=== PATIENT | male | born 1945 | race Caucasian/White ===

== ENCOUNTER → 2023-10-09 06:03 | Outpatient (REF) | payer OTHER, SELFPAY ==
[2023-10-09 10:04] LABS: % Basophils 0.4 % (0-2); % Eosinophils 1.1 % (0-6); % Immature Granulocytes 0.2 % (0-0.5); % Lymphocytes 22.1 % (20.5-51.1); % Monocytes 11.8 % (1.7-9.3); % Neutrophils 64.4 % (42.2-75.2); Absolute Eosinophils 0.1 10^3/uL (0-0.7); Absolute Monocytes 0.5 10^3/uL (0.1-0.6); Hematocrit 38.6 % (39.0-52.0); Hemoglobin 12.4 g/dL (13.0-18.0); Mean Corp Hgb Conc. 32.1 g/dL (33.0-37.0); Mean Corpuscular Hgb 29.5 pg (27.0-31.0); Mean Corpuscular Volume 91.9 fL (80.0-94.0); Nucleated Red Blood Cells % 0 % (-); Platelet Count 274 10^3/uL (130-400); Red Cell Dist. Width 15.4 % (11.5-14.5); White Blood Cell Count 4.6 10^3/uL (4.8-10.8)
[2023-10-09 12:53] LABS: Erythrocyte Sed Rate 14 mm/hour (0-20)
== END ==
LOC: HWLAB 06:03
PROVIDERS: ATTENDING PHYSICIAN Orthopaedic Surgery; FAMILY PHYSICIAN Internal Medicine
DX: T84.84XA Pain due to internal orthopedic prosthetic devices, implants and grafts, initial encounter (principal)
CPT/HCPCS: 36415; 85025; 85652; 86140

== ENCOUNTER → 2023-10-28 14:38 | Outpatient (REF) | payer OTHER, SELFPAY | LOC: HWRAD 14:38 | PROVIDERS: ATTENDING PHYSICIAN Urology; FAMILY PHYSICIAN Internal Medicine | DX: N20.0 Calculus of kidney (principal); N28.1 Cyst of kidney, acquired | CPT/HCPCS: 74178; Q9967 ==

== ENCOUNTER → 2024-01-29 06:35 | Outpatient (REF) | payer OTHER, SELFPAY ==
[2024-01-29 10:00] LABS: % Basophils 0.7 % (0-2); % Eosinophils 1.5 % (0-6); % Immature Granulocytes 0.4 % (0-0.5); % Lymphocytes 24.2 % (20.5-51.1); % Monocytes 10.7 % (1.7-9.3); % Neutrophils 62.5 % (42.2-75.2); Absolute Eosinophils 0.1 10^3/uL (0-0.7); Absolute Lymphocytes 1.1 10^3/uL (1.2-3.4); Absolute Monocytes 0.5 10^3/uL (0.1-0.6); Absolute Neutrophils 2.9 10^3/uL (1.4-6.5); Mean Corp Hgb Conc. 33.3 g/dL (33.0-37.0); Mean Corpuscular Hgb 31.1 pg (27.0-31.0); Mean Corpuscular Volume 93.3 fL (80.0-94.0); Mean Platelet Volume 9.9 fL (7.4-10.4); Nucleated Red Blood Cells % 0 % (-); Platelet Count 262 10^3/uL (130-400); Red Blood Cell Count 4.18 10^6/uL (4.70-6.10); Red Cell Dist. Width 14.9 % (11.5-14.5); White Blood Cell Count 4.6 10^3/uL (4.8-10.8)
[2024-01-29 10:30] LABS: ALT (SGPT) 18 U/L (0-50); AST (SGOT) 21 U/L (17-59); Albumin 3.8 g/dl (3.5-5.0); Alkaline Phosphatase 70 U/L (38-126); Blood Urea Nitrogen 19 mg/dl (9-20); Calcium 8.7 mg/dl (8.4-10.2); Carbon Dioxide 31 mmol/L (22-30); Chloride 104 mmol/L (98-107); Glucose 104 mg/dl (70-99); Potassium 4.8 mmol/L (3.5-5.1); Sodium 139 mmol/L (135-145); Total Bilirubin 0.4 mg/dl (0.2-1.3); Total Protein 6.3 g/dl (6.3-8.2); Uric Acid 6.1 mg/dl (3.5-8.5); eGFR > 60.00
== END ==
LOC: HWLAB 06:35
PROVIDERS: ATTENDING PHYSICIAN Physician Assistant; FAMILY PHYSICIAN Internal Medicine
DX: M10.9 Gout, unspecified (principal); M25.539 Pain in unspecified wrist; M25.579 Pain in unspecified ankle and joints of unspecified foot; M79.643 Pain in unspecified hand; M79.673 Pain in unspecified foot; Z51.81 Encounter for therapeutic drug level monitoring
CPT/HCPCS: 36415; 73100; 73130; 73600; 73630; 80053; 84550; 85025

== ENCOUNTER → 2024-02-23 06:06 | Outpatient (REF) | payer OTHER, SELFPAY ==
[2024-02-23 10:17] LABS: % Basophils 0.4 % (0-2); % Eosinophils 1.4 % (0-6); % Immature Granulocytes 0.2 % (0-0.5); % Lymphocytes 19.4 % (20.5-51.1); % Monocytes 9.5 % (1.7-9.3); % Neutrophils 69.1 % (42.2-75.2); Absolute Eosinophils 0.1 10^3/uL (0-0.7); Absolute Monocytes 0.5 10^3/uL (0.1-0.6); Absolute Neutrophils 3.4 10^3/uL (1.4-6.5); Hematocrit 39.6 % (39.0-52.0); Hemoglobin 13.4 g/dL (13.0-18.0); Mean Corp Hgb Conc. 33.8 g/dL (33.0-37.0); Mean Corpuscular Hgb 31.5 pg (27.0-31.0); Mean Platelet Volume 10.3 fL (7.4-10.4); Nucleated Red Blood Cells % 0 % (-); Platelet Count 238 10^3/uL (130-400); Red Blood Cell Count 4.26 10^6/uL (4.70-6.10); Red Cell Dist. Width 14.5 % (11.5-14.5); White Blood Cell Count 4.9 10^3/uL (4.8-10.8)
[2024-02-23 10:42] LABS: ALT (SGPT) 20 U/L (0-50); AST (SGOT) 21 U/L (17-59); Albumin 3.7 g/dl (3.5-5.0); Alkaline Phosphatase 71 U/L (38-126); Blood Urea Nitrogen 19 mg/dl (9-20); Calcium 8.7 mg/dl (8.4-10.2); Carbon Dioxide 30 mmol/L (22-30); Chloride 100 mmol/L (98-107); Glucose 112 mg/dl (70-99); HDL Cholesterol 75 mg/dl; LDL Cholesterol, Calculated 97 mg/dl; Potassium 3.9 mmol/L (3.5-5.1); Sodium 137 mmol/L (135-145); Total Bilirubin 0.5 mg/dl (0.2-1.3); Total Cholesterol 188 mg/dl (50-199); Total Protein 6.3 g/dl (6.3-8.2); Triglyceride 84 mg/dl (10-149); Very Low Density Lipoprotein 16 mg/dl (0-30); eGFR > 60.00
[2024-02-23 11:08] LABS: TSH 2.92 uIU/ml (0.47-4.68)
== END ==
LOC: HWLAB 06:06
PROVIDERS: ATTENDING PHYSICIAN Internal Medicine
DX: I10 Essential (primary) hypertension (principal)
CPT/HCPCS: 36415; 80053; 80061; 84443; 85025

== ENCOUNTER → 2024-08-19 06:25 | Outpatient (REF) | payer OTHER, SELFPAY ==
[2024-08-19 10:16] LABS: Blood Urea Nitrogen 16 mg/dl (9-20); Calcium 8.5 mg/dl (8.4-10.2); Carbon Dioxide 32 mmol/L (22-30); Chloride 100 mmol/L (98-107); Glucose 109 mg/dl (70-99); Potassium 4.3 mmol/L (3.5-5.1); Sodium 138 mmol/L (135-145); eGFR > 60.00
== END ==
LOC: HWLAB 06:25
PROVIDERS: ATTENDING PHYSICIAN Internal Medicine
DX: Z13.31 Encounter for screening for depression (principal); I10 Essential (primary) hypertension
CPT/HCPCS: 36415; 80048

== ENCOUNTER → 2024-11-02 12:32 | Outpatient (REF) | payer OTHER, SELFPAY | LOC: RAD 12:32 | PROVIDERS: ATTENDING PHYSICIAN Urology; FAMILY PHYSICIAN Internal Medicine | DX: N20.0 Calculus of kidney (principal); N28.1 Cyst of kidney, acquired | CPT/HCPCS: 74178; Q9967 ==

== ENCOUNTER → 2024-11-08 06:21 | Outpatient (REF) | payer OTHER, SELFPAY ==
[2024-11-08 09:54] LABS: % Basophils 0.7 % (0-2); % Eosinophils 1.4 % (0-6); % Immature Granulocytes 0.2 % (0-0.5); % Lymphocytes 23.9 % (20.5-51.1); % Monocytes 9.4 % (1.7-9.3); % Neutrophils 64.4 % (42.2-75.2); Absolute Eosinophils 0.1 10^3/uL (0-0.7); Absolute Monocytes 0.4 10^3/uL (0.1-0.6); Absolute Neutrophils 2.8 10^3/uL (1.4-6.5); Hematocrit 42.4 % (39.0-52.0); Hemoglobin 13.9 g/dL (13.0-18.0); Mean Corp Hgb Conc. 32.8 g/dL (33.0-37.0); Mean Corpuscular Volume 97.5 fL (80.0-94.0); Mean Platelet Volume 9.6 fL (7.4-10.4); Nucleated Red Blood Cells % 0 % (-); Platelet Count 240 10^3/uL (130-400); Red Blood Cell Count 4.35 10^6/uL (4.70-6.10); Red Cell Dist. Width 12.5 % (11.5-14.5); White Blood Cell Count 4.3 10^3/uL (4.8-10.8)
[2024-11-08 09:58] LABS: Blood Urea Nitrogen 24 mg/dl (9-20); Calcium 9.1 mg/dl (8.4-10.2); Carbon Dioxide 33 mmol/L (22-30); Chloride 99 mmol/L (98-107); Glucose 106 mg/dl (70-99); Potassium 4.4 mmol/L (3.5-5.1); Sodium 138 mmol/L (135-145); eGFR > 60.00
[2024-11-08 11:13] LABS: NT-proBNP 37.4 pg/ml
== END ==
LOC: HWLAB 06:21
DX: R06.09 Other forms of dyspnea (principal); R42 Dizziness and giddiness
CPT/HCPCS: 36415; 71046; 80048; 83880; 85025

== ENCOUNTER 2024-11-09 16:18 | Emergency (ER) | payer OTHER, SELFPAY ==
[2024-11-09 16:20] VITALS: BP 141/76
--- NOTE | 2024-11-09 16:46 | ED.GENMED ---
History of Present Illness
General
Chief Complaint: Chest Pain
Source: patient
Time Seen by Provider: 11/09/24 16:32
History of Present Illness
History of Present Illness:
79-year-old male presents the emergency room complaining of chest pain, mildly dizzy. Symptoms have been intermittent since Thursday. He was sent to the emergency by his primary care doctor for further evaluation. Patient does have a history of a
hiatal hernia and suspects his symptoms are from that. He denies any associated nausea, diaphoresis or shortness of breath. He is not having any discomfort at the time of my evaluation. Patient denies any previous cardiac history. Patient was
evaluated by Dr. Mendze for his hiatal hernia.
Past History
Past History
ED Past Medical History: HTN, Hypercholesterolemia, Other (Gout, glaucoma) and Other (Kidney stones)
ED Past Surgical History: Orthopedic (Bilateral knee replacements, left hip replacement at [facility] February 2022) and Tonsilectomy
Social History
Tobacco: Non-smoker
Alcohol: Daily
Drug: None
Personal:
Living: with family
Employment: Retired
Family History
Family History: Other (Noncontributory)
Phy Exam
Physical Exam
Physical Exam:
General: Awake, Alert, Oriented X3. No acute distress, appears stated age. High BMI.
Vitals: unremarkable
Head: Atraumatic
Eyes: Pupils equal, EOMI
Throat: Airway intact, no exudates
Neck: Trachea midline
Lungs: Clear and equal b/l
Heart: Regular rate, no murmurs
Abd: Soft, protuberant, nontender, No pulsatile mass
Neuro: Nonfocal
Skin: Warm, dry, no rash
Extremities: pulses equal b/l, no edema
Scores
Heart Score for Chest Pain Patients
STEMI patient?: No
History: Slightly or Non-Suspicious
ECG: Nonspecific Repolarization
Age: >/= 65 years
Risk Factors: 1 or 2 Risk Factors
Troponin: </= Normal Limit
Heart Score for Chest Pain Patients: 4
Heart Score Risk: 20.3% MACE over next 6 weeks
Course
Orders/Labs/Results
Orders:
Orders
11/09/24 16:18
Electrocardiogram (*1) Urgent
Reason for Study: Chest Pain
EKG- Treatment ONCE
11/09/24 16:59
Troponin I Urgent
Vital Signs
Initial and Last Documented VS:
Initial Vital Signs
Temp Pulse Resp BP Pulse Ox
98.5 F 82 16 141/76 97
11/09/24 16:20 11/09/24 16:20 11/09/24 16:20 11/09/24 16:20 11/09/24 16:20
Last Documented Vital Signs
Temp Pulse Resp BP Pulse Ox
98.5 F 69 18 139/86 97
11/09/24 16:20 11/09/24 18:30 11/09/24 18:30 11/09/24 18:00 11/09/24 18:35
MDM/Problems Addressed
Differential Diagnosis Includes:
acs, nstemi, discomfort from hiatal hernia
MDM/Problems Addressed:
Patient has a normal troponin. He had blood work yesterday which was reassuring. Pain has been intermittent throughout the day so 1 troponin is reassuring. Patient placed on the chest pain hotline. Also recommend follow-up with general surgery
for further evaluation of his hiatal hernia particularly if he is cleared by cardiology.
*Radiology
Radiology exam reviewed: preliminary read by ED provider (No acute abnormality by my review)
*Pulse Oximetry
Patient hypoxic: no
*EKG
Interpreted by ED Provider?: Yes
Heart Rate: 77
Rate: normal
Rhythm: sinus
[place]: normal axis
Interval: first degree heart block
QRS Pattern: normal QRS
Ischemia: non-specific ST changes
*[facility] Interpretation
Rate: normal
Interpretation: normal
Heart Rate: 77
Rhythm: sinus
*Critical Care Note
Total Time (30-74mins, 75-104mins- exclusive of procedures): Not Applicable
ED Attending Note
-
Portions of this chart may have been created with voice recognition software.� Occasional wrong word or��sound alike� substitutions may have occurred due to the inherent limitations of voice recognition software.
Discharge Plan
Departure
Patient Disposition: Home (Routine Discharge)
Date of Disposition: 11/09/24
Time of Disposition: 18:35
Patient with high blood pressure during this ER visit?: Yes
Condition: Good
Discharge Problem:
Chest pain, Hiatal hernia
Instructions: Chest Pain DCA Follow Up, BLOOD PRESSURE
Prescriptions:
No Action
enalapril maleate 5 mg Tablet
5 mg PO DAILY
atorvastatin 10 mg Tablet
10 mg PO QPM
probenecid 500 mg Tablet
500 mg PO BID
turmeric 400 mg Capsule
400 mg PO DAILY
tamsulosin [Flomax] 0.4 mg Capsule
0.4 mg PO HS Qty: 20 0RF
polyethylene glycol 3350 [Miralax] 17 gram Powder In Packet
17 g PO DAILY
meloxicam 15 mg tablet
15 mg PO DAILY
bisacodyl [Dulcolax (bisacodyl)] 5 mg Tablet,Delayed Release (Dr/Ec)
10 mg PO BIDPRN PRN (Reason: when on vicodin)
Cholest Off 450 mg Tablet
900 mg PO BID
hydrocodone-acetaminophen 5-300 mg tablet
1 tab PO QIDPRN PRN (Reason: severe pain)
Referrals:
Vince Li MD [Active] -
Zulma Richter MD [Active] -
Franki Sanchez MD [Family Provider] -
Activity Restrictions/Additional Instructions:
Your EKG and heart test here are good. Chest x-ray from yesterday confirms the presence of a large hiatal hernia but there is no other abnormalities noted on your chest x-ray. Your blood work from yesterday showed a mildly elevated glucose level
and suggestion that you may have been a bit dehydrated at the time. You should follow-up with cardiology. I have placed you on our 'chest pain hotline' and you should receive a call from [facility] tomorrow to schedule an
appointment. I have provided you with their contact information if you do not hear from them. You should also follow-up with surgery for further evaluation of her hiatal hernia.
Interventions
Interventions:
*Risk Screen - Suicide Last Done: 11/09/24 17:24
*General Assessment Last Done: 11/09/24 17:25
*Neglect/Abuse Screening Last Done: 11/09/24 17:24
*ED- Fall Risk Assessment Last Done: 11/09/24 17:24
*Nursing Disposition Last Done: 11/09/24 18:41
ED- Cardiac Assessment Last Done: 11/09/24 17:24
Discharge Date and Time
Discharge Date/Time: 11/09/24 18:41
Print Language: SERBIAN
[2024-11-09 17:00] VITALS: BP 136/77
[2024-11-09 18:00] VITALS: BP 139/86
[2024-11-09 18:02] LABS: Troponin I < 0.012 ng/ml
== END 2024-11-09 18:41 | disposition home or self-care (01) ==
LOC: EMR 16:18
PROVIDERS: EMERGENCY PHYSICIAN Emergency Medicine; FAMILY PHYSICIAN Internal Medicine
DX: R07.9 Chest pain, unspecified (principal); K44.9 Diaphragmatic hernia without obstruction or gangrene; I44.0 Atrioventricular block, first degree; I10 Essential (primary) hypertension; E78.00 Pure hypercholesterolemia, unspecified
CPT/HCPCS: 99284; 84484; 93005

== ENCOUNTER → 2024-11-28 10:50 | Outpatient (REF) | payer OTHER, SELFPAY | LOC: HWRCS 10:50 | PROVIDERS: ATTENDING PHYSICIAN Nuclear Medicine Nuclear Cardiology; FAMILY PHYSICIAN Internal Medicine | DX: R06.02 Shortness of breath (principal); R55 Syncope and collapse; R42 Dizziness and giddiness; I49.3 Ventricular premature depolarization; R01.1 Cardiac murmur, unspecified | CPT/HCPCS: 93306 ==

== ENCOUNTER → 2025-01-03 06:26 | Outpatient (REF) | payer OTHER, SELFPAY ==
[2025-01-03 09:22] LABS: HDL Cholesterol 71 mg/dl; LDL Cholesterol, Calculated 91 mg/dl; Total Cholesterol 189 mg/dl (50-199); Triglyceride 135 mg/dl (10-149); Very Low Density Lipoprotein 27 mg/dl (0-30)
== END ==
LOC: HWLAB 06:26
PROVIDERS: ATTENDING PHYSICIAN Internal Medicine
DX: E78.5 Hyperlipidemia, unspecified (principal)
CPT/HCPCS: 36415; 80061

== ENCOUNTER → 2025-02-03 15:50 | Outpatient (REF) | payer OTHER, SELFPAY | LOC: DHSLP 15:50 | PROVIDERS: ATTENDING PHYSICIAN Internal Medicine; FAMILY PHYSICIAN Internal Medicine | DX: G47.33 Obstructive sleep apnea (adult) (pediatric) (principal) | CPT/HCPCS: 95800 ==

== ENCOUNTER 2025-03-22 06:35 | Day surgery (SDC) | payer OTHER, SELFPAY ==
[2025-03-13 09:12] LABS: Hematocrit 39.4 % (39.0-52.0); Hemoglobin 13.0 g/dL (13.0-18.0); Mean Corp Hgb Conc. 33.0 g/dL (33.0-37.0); Mean Corpuscular Volume 97.8 fL (80.0-94.0); Platelet Count 215 10^3/uL (130-400); Red Cell Dist. Width 12.6 % (11.5-14.5)
[2025-03-13 09:59] LABS: Blood Urea Nitrogen 22 mg/dl (9-20); Calcium 8.7 mg/dl (8.4-10.2); Carbon Dioxide 30 mmol/L (22-30); Chloride 104 mmol/L (98-107); Glucose 100 mg/dl (70-99); Potassium 4.7 mmol/L (3.5-5.1); Sodium 138 mmol/L (135-145); eGFR > 60.00
[2025-03-13 13:54] VITALS: BMI 36.4
[2025-03-22] VITALS (12 sets, daily range): BP systolic 115–152; BP diastolic 63–87; BMI 36.4
[2025-03-22] MEDS: TYLENOL 1000 MG PO (09:16)
[2025-03-22] MEDS: NORMOSOL-R/PLASMALYTE-A 1000 IV ×2 (09:17→17:11)
--- NOTE | 2025-03-22 15:20 | W.IMMPOSTOP ---
Surgical Immed Post Op Note
-
Primary Surgeon: Guillermo
Assisting Surgeon: ARLEEN Horvath
Pre-op Diagnosis: Paraesophageal hernia
Post-op Diagnosis: Paraesophageal hernia
Procedure Performed: Laparoscopic paraesophageal hernia repair with fundoplication
Anesthesia Type: General
Specimen / Cultures: None
Estimated Blood Loss: 11 cc
Complications: None
Operative Findings:
1. 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
2. Complete reduction with > 3 cm esophageal mobilization
3. Bl vagi identified, no pleural violation
4. Posterior crural closure with 0 silk x6
5. Gastropexy along greater curve with 0 silk
[2025-03-22] MEDS: OFIRMEV 100 IV ×2 (16:27→21:08)
[2025-03-22] MEDS: NON-FORMULARY ITEM 1 DROP OPHTH ×2 (18:31→21:06)
[2025-03-22] MEDS: PRED FORTE 1% EYE DROPS 1 DROP OPHTH ×2 (18:31→21:07)
--- NOTE | 2025-03-22 19:22 | PTCARENOTE ---
Pt arrived to [facility] from PACU in a bed. Pt on 2L at 96% lungs diminished. 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 Crepitus felt on shoulders. Knee high SCDs on pt. Admission questions answered. Bed locked and in lowest
position. Care ongoing.
--- NOTE | 2025-03-22 19:24 | PTCARENOTE ---
Addendum entered by Elinor Hinson RN 03/22/25 19:25:
Sinus denzel on monitor. Care ongoing.
Original Note:
Pt placed on telemetry per Dr. Li.
[2025-03-23 03:15] VITALS: BP 129/73
[2025-03-23] MEDS: OFIRMEV 100 IV ×2 (03:39→10:40)
[2025-03-23] MEDS: NORMOSOL-R/PLASMALYTE-A 1000 IV (04:25)
[2025-03-23 06:06] LABS: Hematocrit 35.3 % (39.0-52.0); Hemoglobin 11.8 g/dL (13.0-18.0); Mean Corp Hgb Conc. 33.4 g/dL (33.0-37.0); Mean Corpuscular Volume 97.2 fL (80.0-94.0); Platelet Count 219 10^3/uL (130-400); Red Cell Dist. Width 13.0 % (11.5-14.5)
[2025-03-23 06:31] LABS: Blood Urea Nitrogen 20 mg/dl (9-20); Calcium 8.1 mg/dl (8.4-10.2); Carbon Dioxide 28 mmol/L (22-30); Chloride 103 mmol/L (98-107); Estimated Creatinine Clearance 74 ml/min; Glucose 106 mg/dl (70-99); Potassium 4.2 mmol/L (3.5-5.1); Sodium 135 mmol/L (135-145); eGFR > 60.00
[2025-03-23 07:25] VITALS: BP 115/68
--- NOTE | 2025-03-23 08:30 | W.PN.GS2 ---
Today's Communication / Plan
-
-- Clears ADAT to fulls, possible soft food this afternoon/evening
-- IVF until tolerating diet
-- Pain control: IV Tylenol, Toradol, Dilaudid
-- Home meds reviewed and ordered as needed, plan to start home BB and will hold on other BP meds
-- Dispo pending
Assessment / Plan
-
Patient is a 79 yo M POD#1 s/p laparoscopic PEH repair with gastropexy
AVSS
Labs unremarkable
Recovering well. No postoperative concerns. Plan for dietary advancement throughout the day.
-- Clears ADAT to fulls, possible soft food this afternoon/evening
-- IVF until tolerating diet
-- Pain control: IV Tylenol, Toradol, Dilaudid
-- Home meds reviewed and ordered as needed, plan to start home BB and will hold on other BP meds
-- DVT: Lovenox
-- GI: PPI
-- Dispo pending
Subjective Data
-
Date of Service: March 23, 2025
No major complaints. Reports some chest soreness. Pain overall well-controlled. No nausea, vomiting, or regurgitation. No issues with reflux. No fevers. No ambulation postop. Voiding.
Objective Data
-
Intake and Output
03/22/25 03/23/25 03/24/25
06:59 06:59 06:59
Intake Total 1700 / 1700
Output Total 700 / 700
Balance 1000 / 1000
Intake:
IV fluids (Total) 1450 / 1450
Normosal 200 / 200
IV piggybacks 250 / 250
Output:
Urine, Voided 700 / 700
Vital Signs
Temp Pulse Resp BP Pulse Ox
98.5 F 60 16 115/68 95
03/23/25 07:25 03/23/25 07:25 03/23/25 07:25 03/23/25 07:25 03/23/25 07:25
Lab Results
03/23/25 05:21
03/23/25 05:21
Calcium 8.1 mg/dl (8.4-10.2) L 03/23/25 05:21
Physical Exam
-
Gen: NAD
Abd: soft, obese, mild tenderness, ND, non-peritoneal, incisions c/d/i - no erythema, ecchymosis or drainage
Patient has a baer catheter: No
Patient has a central line: No
[2025-03-23] MEDS: NSS (PRESERVATIVE FREE) 10 ML IV (08:51)
[2025-03-23] MEDS: PROTONIX IV 40 MG IV (08:51)
[2025-03-23] MEDS: TOPROL XL 12.5 MG PO (08:51)
[2025-03-23] MEDS: NON-FORMULARY ITEM 1 UNIT OPHTH (08:52)
[2025-03-23] MEDS: NON-FORMULARY ITEM 1 DROP OPHTH ×4 (08:52→21:10)
[2025-03-23] MEDS: NON-FORMULARY ITEM 1 UNIT RIGHT EYE (08:53)
[2025-03-23] MEDS: PRED FORTE 1% EYE DROPS 1 DROP OPHTH ×5 (08:53→21:10)
--- NOTE | 2025-03-23 10:05 | CM ---
Reviewed the chart notes and spoke with the patient at the bedside. Patient is s/p laparoscopic PEH repair with gastropexy. The patient resides with spouse in a one story home with one step to enter. The patient has a cane, CPAP machine and grab
bar in shower. The patient has had [facility] in past, but no SNF. The patient confirmed his pharmacy of choice is [facility]. CM continues to be available to patient/family and is monitoring medical plan for needs at discharge.
Plan: Discharge to home when medically stable. No anticipated needs identified at this time.
[2025-03-23 11:20] VITALS: BP 114/64
[2025-03-23] MEDS: NORMOSOL-R/PLASMALYTE-A IV (13:01)
[2025-03-23 15:38] VITALS: BP 120/64
[2025-03-23] MEDS: LOVENOX 40 MG SC (17:33)
[2025-03-23 19:41] VITALS: BP 124/62
[2025-03-23] MEDS: TORADOL 15 MG IV (21:58)
[2025-03-23 23:10] VITALS: BP 105/58
[2025-03-24 03:15] VITALS: BP 131/71
[2025-03-24 07:30] VITALS: BP 117/64
[2025-03-24] MEDS: PROTONIX IV 40 MG IV (07:44)
[2025-03-24] MEDS: NON-FORMULARY ITEM 1 UNIT OPHTH (07:44)
[2025-03-24] MEDS: LIPITOR 10 MG PO (07:44)
[2025-03-24] MEDS: NSS (PRESERVATIVE FREE) 10 ML IV (07:44)
[2025-03-24] MEDS: NON-FORMULARY ITEM 1 DROP OPHTH (07:45)
[2025-03-24] MEDS: NON-FORMULARY ITEM 1 UNIT RIGHT EYE (07:45)
[2025-03-24] MEDS: PRED FORTE 1% EYE DROPS 1 DROP OPHTH ×2 (07:45→07:46)
[2025-03-24] MEDS: TOPROL XL 12.5 MG PO (07:46)
[2025-03-24] MEDS: TORADOL 15 MG IV (08:01)
--- NOTE | 2025-03-24 08:54 | CM ---
Cm reviewed medical records. Patient remains acutely ill. CM will continue to follow for needs.
PLAN: Home no needs anticipated.
--- NOTE | 2025-03-24 09:11 | W.PN.GS2 ---
Today's Communication / Plan
-
-- DC today
Assessment / Plan
-
Patient is a 79 yo M POD#2 s/p laparoscopic PEH repair with gastropexy
AVSS
Labs unremarkable
Recovering well. No postoperative concerns. DC today
-- Soft diet, education provided
-- HLIV
-- Pain control: IV Tylenol, Toradol, Tramadol
-- Home meds reviewed and ordered as needed, restart meds on DC
-- DVT: Lovenox
-- GI: PPI
-- DC today
Subjective Data
-
Date of Service: March 24, 2025
No complaints. No issues with nausea or emesis, no dysphagia or regurgitation. No fevers. Pain well controlled.
Objective Data
-
Intake and Output
03/23/25 03/24/25 03/25/25
06:59 06:59 06:59
Intake Total 1700 / 1700 960 / 960
Output Total 700 / 700 725 / 725
Balance 1000 / 1000 235 / 235
Intake:
Oral fluids 960 / 960
IV fluids (Total) 1450 / 1450
Normosal 200 / 200
IV piggybacks 250 / 250
Output:
Urine, Voided 700 / 700 725 / 725
Other:
Number of approximated MODERATE 1
amounts of urine
Number of approximated LARGE 2
amounts of urine
Vital Signs
Temp Pulse Resp BP Pulse Ox
98.0 F 64 16 117/64 95
03/24/25 07:30 03/24/25 07:46 03/24/25 07:30 03/24/25 07:46 03/24/25 07:30
Lab Results
03/23/25 05:21
03/23/25 05:21
Calcium 8.1 mg/dl (8.4-10.2) L 03/23/25 05:21
Physical Exam
-
Gen: NAD
Abd: soft, obese, mild tenderness, ND, non-peritoneal, incisions c/d/i - no erythema, ecchymosis or drainage
Patient has a baer catheter: No
Patient has a central line: No
--- NOTE | 2025-03-24 09:41 | CM ---
CM reviewed medical records. Patient is medically ready for discharge. No needs noted.
PLAN: Home no needs.
--- NOTE | 2025-03-24 09:48 | W.DS.TRANS ---
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
-
Discharge Instructions:
Discharge Diagnosis/Procedures Laparoscopic paraesophageal hernia repair
Diet Other diet
Additional Diets Follow a soft food diet for approximately 3
weeks. Chew food thoroughly. Eat small
frequent meals. Avoid large cuts of steaks,
large breads, and dry pasta. Avoid drinking
with a straw and carbonated beverages.
Activity No strenuous activity
Additional Activity No heavy lifting (>20 lbs) or strenuous
activities for result 4 to 6 weeks
postoperatively
Driving Restrictions No driving if too sore or taking narcotics
Bathing Restrictions OK to Shower
Wound Care Keep incisions clean and dry. Glue will flake
off in 2 to 3 weeks. Stitches will dissolve.
Use ice to the abdomen to reduce any bruising or
swelling.
Instructions:
Stand-Alone Forms:
Changes to Home Medications: No
Discharge Medications:
DC Medications w/original date entered in [employer]
atorvastatin 10 mg tablet 10 mg PO DAILY 08/18/22
meloxicam 15 mg tablet 15 mg PO DAILY 11/18/22
Cholestoff Plus 2 cap PO BID 03/15/25
brimonidine 0.1 % eye drops 1 drp ophthalmic (eye) Q8H right eye 03/15/25
enalapril 5 mg-hydrochlorothiazide 12.5 mg tablet 1 tab PO DAILY 03/15/25
ketorolac 0.5 % eye drops 1 drp ophthalmic (eye) QID 4x left eye, 1x right eye 03/15/25
metoprolol succinate 25 mg tablet,extended release 24 hr 12.5 mg PO DAILY 03/15/25
omeprazole 40 mg capsule,delayed release 40 mg PO DAILY 03/15/25
prednisolone acetate 1 % eye drops,suspension 1 drp ophthalmic (eye) QID 4x left eye, 1x right eye 03/15/25
probenecid 500 mg tablet 500 mg PO BID 03/15/25
acetaminophen 500 mg tablet 1,000 mg PO Q6H PRN pain 03/22/25
tramadol 50 mg tablet 50 mg PO Q6HPRN PRN severe pain/breakthrough pain #10 tabs 03/24/25
Home Medication Changes
Pending Results: No
== END 2025-03-24 10:42 | disposition home or self-care (01) ==
LOC: SDS 06:35
PROVIDERS: ATTENDING PHYSICIAN Surgery; FAMILY PHYSICIAN Internal Medicine
DX: K44.9 Diaphragmatic hernia without obstruction or gangrene (principal)
CPT/HCPCS: 43281; 36415; 80048; 85027; 93005

== ENCOUNTER → 2025-05-02 06:06 | Outpatient (REF) | payer OTHER, SELFPAY ==
[2025-05-02 10:11] LABS: ALT (SGPT) 16 U/L (0-50); AST (SGOT) 17 U/L (17-59); Albumin 3.9 g/dl (3.5-5.0); Alkaline Phosphatase 67 U/L (38-126); Blood Urea Nitrogen 19 mg/dl (9-20); Calcium 9.1 mg/dl (8.4-10.2); Carbon Dioxide 29 mmol/L (22-30); Chloride 105 mmol/L (98-107); Glucose 108 mg/dl (70-99); Iron 60 ug/dl (49-181); Potassium 4.1 mmol/L (3.5-5.1); Sodium 139 mmol/L (135-145); Total Protein 6.2 g/dl (6.3-8.2); eGFR > 60.00
[2025-05-02 10:19] LABS: Hematocrit 36.0 % (39.0-52.0); Hemoglobin 12.1 g/dL (13.0-18.0); Mean Corp Hgb Conc. 33.6 g/dL (33.0-37.0); Mean Corpuscular Volume 96.3 fL (80.0-94.0); Nucleated Red Blood Cells % 0 % (-); Platelet Count 214 10^3/uL (130-400); Red Cell Dist. Width 12.4 % (11.5-14.5)
[2025-05-02 10:21] LABS: Total Iron Binding Capacity 361 ug/dl (261-462)
[2025-05-02 10:50] LABS: Ferritin 33.3 ng/ml (17.9-464.0)
[2025-05-02 11:05] LABS: Vitamin B12 204 pg/ml (239-931)
[2025-05-02 12:29] LABS: Hepatitis C Antibody Negative (Negative)
== END ==
LOC: HWLAB 06:06
PROVIDERS: ATTENDING PHYSICIAN Family Medicine
DX: I10 Essential (primary) hypertension (principal); R79.9 Abnormal finding of blood chemistry, unspecified; Z01.89 Encounter for other specified special examinations; Z79.899 Other long term (current) drug therapy; R53.83 Other fatigue
CPT/HCPCS: 36415; 80053; 82607; 82668; 82728; 83540; 83550; 85025; 86803

== ENCOUNTER → 2025-06-08 08:30 | Outpatient (REF) | payer OTHER, SELFPAY | LOC: DHSLP 08:30 | PROVIDERS: ATTENDING PHYSICIAN Internal Medicine; FAMILY PHYSICIAN Internal Medicine | DX: G47.33 Obstructive sleep apnea (adult) (pediatric) (principal); G47.31 Primary central sleep apnea | CPT/HCPCS: 95811 ==

== ENCOUNTER → 2025-06-21 06:15 | Outpatient (REF) | payer OTHER, SELFPAY ==
[2025-06-21 10:32] LABS: Hematocrit 38.1 % (39.0-52.0); Hemoglobin 12.7 g/dL (13.0-18.0); Mean Corp Hgb Conc. 33.3 g/dL (33.0-37.0); Mean Corpuscular Volume 95.5 fL (80.0-94.0); Nucleated Red Blood Cells % 0 % (-); Platelet Count 215 10^3/uL (130-400); Red Cell Dist. Width 12.7 % (11.5-14.5)
[2025-06-21 10:41] LABS: ALT (SGPT) 20 U/L (0-50); AST (SGOT) 20 U/L (17-59); Albumin 4.0 g/dl (3.5-5.0); Alkaline Phosphatase 67 U/L (38-126); Blood Urea Nitrogen 21 mg/dl (9-20); Calcium 9.0 mg/dl (8.4-10.2); Carbon Dioxide 30 mmol/L (22-30); Chloride 103 mmol/L (98-107); Glucose 115 mg/dl (70-99); Potassium 4.4 mmol/L (3.5-5.1); Sodium 138 mmol/L (135-145)
[2025-06-21 11:01] LABS: Total Protein 6.6 g/dl (6.3-8.2); eGFR > 60.00
[2025-06-21 13:44] LABS: Vitamin B12 > 1000 pg/ml (239-931)
== END ==
LOC: HWLAB 06:15
PROVIDERS: ATTENDING PHYSICIAN Family Medicine
DX: E53.8 Deficiency of other specified B group vitamins (principal); I10 Essential (primary) hypertension
CPT/HCPCS: 36415; 80053; 82607; 85025